=== PATIENT | male | born 1970 | race Caucasian/White ===

== ENCOUNTER → 2018-10-16 | Day surgery (SDC) | payer MEDICAID ==
[2018-10-11 09:53] VITALS: BMI 27.3
[~2018-10-16] MED LIST: LACTATED RINGERS 1,000 ML IV ONE; LACTATED RINGERS 1,000 ML IV SCH; LIDOCAINE 1% 20 ML VIAL (10MG/ML) FOR IV START INTRADERMA PRN; LIDOCAINE 1% INJ 10MG/ML (20 ML MDV) ONE; PROPOFOL 10 MG/ML 20 ML VIAL IV ONE; fentaNYL (PF) 50 MCG/ML 2 ML AMP ONE
[2018-10-16 07:21] VITALS: TEMP 97.3
--- NOTE | 2018-10-16 07:51 | P.GSHP ---
History of Present Illness H&P Date: 10/16/18 Chief Complaint: GERD, hemorrhoids This a 48-year-old male referred from Dr. Nicci foster. Patient presents today for EGD and colonoscopy. He's had issues with GERD. He also complains of hemorrhoids. He complains of burning and itching and some rectal bleeding from hemorrhoids Past Medical History Past Medical History: Eye Disorder, GERD/Reflux, Hyperlipidemia, Sleep Apnea/CPAP/BIPAP Additional Past Medical History / Comment(s): "Has thick blood." Hypoglycemic. Left eye optic neuritis. Hemorrhoids. Hernia. No CPAP use. History of Any Multi-Drug Resistant Organisms: None Reported Past Surgical History: No Surgical Hx Reported Past Anesthesia/Blood Transfusion Reactions: No Reported Reaction Past Psychological History: Anxiety Smoking Status: Current every day smoker Past Alcohol Use History: Daily Additional Past Alcohol Use History / Comment(s): Has been smoking on and off since 12-13 yrs old, 1/2 PPD. Past Drug Use History: None Reported - Past Family History Father Family Medical History: Unable to Obtain Mother Family Medical History: Cancer Additional Family Medical History / Comment(s): Thyroid cancer. Medications and Allergies Home Medications Medication Instructions Recorded Confirmed Type Cholesterol Medication 1 tab PO DAILY 10/11/18 10/11/18 History Ibuprofen [Motrin] 800 mg PO BID 10/11/18 10/11/18 History Ranitidine HCl 300 mg PO BID PRN 10/11/18 10/11/18 History Allergies Allergy/AdvReac Type Severity Reaction Status Date / Time No Known Allergies Allergy Verified 10/11/18 09:56 Surgical - Exam Vital Signs Pulse Resp BP Pulse Ox 65 18 154/91 94 L 10/16/18 07:18 10/16/18 07:18 10/16/18 07:18 10/16/18 07:18 - General well developed, well nourished, no distress - Eyes PERRL - ENT normal pinna - Neck no masses - Respiratory normal expansion - Cardiovascular Rhythm: regular - Abdomen Abdomen: soft, non tender Assessment and Plan Assessment: GERD, hemorrhoids. We'll perform EGD and colonoscopy.
--- NOTE | 2018-10-16 08:12 | P.OP ---
Date of Procedure: 10/16/18 Preoperative Diagnosis: GERD Hemorrhoids Postoperative Diagnosis: Antral gastritis Moderate size hiatal hernia Mild esophagitis External hemorrhoids Transverse colon polyp Mild diverticulosis Procedure(s) Performed: EGD Colonoscopy Anesthesia: MAC Surgeon: Larry Grider Pathology: other (Antrum, esophagus, transverse colon polyp) Condition: stable Disposition: PACU Description of Procedure: The patient's placed on the endoscopy table in the lateral position. He received IV sedation. The gastroscope some placed oropharynx passed in the esophagus and into the stomach. Scope was then placed through the pylorus. The first and second portion of the duodenum appeared normal. Scope was then brought back the antrum and this appeared mildly inflamed. A biopsies performed. The scope was then retroflexed and the remainder of the stomach appeared normal. There was a moderate size hiatal hernia. The GE junction was at 38 cm. The distal esophagus inflamed and a biopsy was performed. The proximal esophagus appeared normal. Scope was withdrawn for patient. Next digital rectal exam was performed which revealed external thrombosed hemorrhoids. There was some minimal internal hemorrhoids. The prostate was symmetric without nodules. The flexible colonoscope was then placed patient anus and passed throughout the entire colon. The ileocecal valve was visualized. The cecum, ascending colon appeared normal. In the proximal transverse colon near the hepatic flexure there was a polyp seen this removed with the cold Forcep. Scope was then withdrawn the remainder of the transverse colon appeared normal. In the descending and; was mild diverticular changes. The scope was then brought back the rectum and this appeared normal. Scope was withdrawn through the anus and external thrombosed hemorrhoids were noted. Scope was withdrawn for patient.
[2018-10-16 08:26] VITALS: RESP 16
[2018-10-16 08:41] VITALS: BP 164/94; PULSE 65
== END ==
LOC: ORWHC2ENDO 07:05
PROVIDERS: ATTEND Surgery
DX: K21.0 Gastro-esophageal reflux disease with esophagitis (principal); K64.5 Perianal venous thrombosis; K44.9 Diaphragmatic hernia without obstruction or gangrene; K57.30 Diverticulosis of large intestine without perforation or abscess without bleeding; K29.50 Unspecified chronic gastritis without bleeding; K63.5 Polyp of colon; E78.5 Hyperlipidemia, unspecified; G47.33 Obstructive sleep apnea (adult) (pediatric); F17.210 Nicotine dependence, cigarettes, uncomplicated; M19.90 Unspecified osteoarthritis, unspecified site; H46.9 Unspecified optic neuritis; Z80.8 Family history of malignant neoplasm of other organs or systems; Z79.1 Long term (current) use of non-steroidal anti-inflammatories (NSAID); Z79.899 Other long term (current) drug therapy
CPT/HCPCS: 88305; 45380; 43239; J2001; J3010; J2704

== ENCOUNTER → 2020-12-04 | Outpatient (CLI) | payer MEDICAID ==
--- NOTE | 2020-12-05 07:48 | US ---
EXAMINATION TYPE: US scrotum with doppler. Grayscale and color Doppler Duplex imaging performed of helen hernandez scrotum. DATE OF EXAM: 12/04/2020 COMPARISON: NONE CLINICAL HISTORY: N50.819 Testicular pain. Bilateral testicular pain. Vasectomy about 2.5 years ago. EXAM MEASUREMENTS: TESTICLES: Right Testicle: 4.9 x 2.8 x 2.4 cm Left Testicle: 4.4 x 3.1 x 2.5 cm Tiny hyperechoic areas seen throughout bilateral testicles. EPIDIDYMIS HEAD: Right Epididymis: 0.7 x 1.3 x 1.4 cm Left Epididymis: 1.2 x 1.6 x 1.1 cm Slightly limited visibility of left epididymis. Doppler performed to assess for testicular vascularity; bilateral color flow and waveforms are seen. Presence of hydroceles: Yes, right: 2.1 x 0.4 x 0.9 cm. left: 3.1 x 1.2 x 1.4 cm. Presence of varicoceles: Vessels measure up to 1.6 mm on the right and 2.1 mm on the left. IMPRESSION: 1. Bilateral hydroceles. 2. Bilateral varicoceles. 3 focal calcifications throughout the testicles.
== END | disposition home or self-care (01) ==
LOC: RADUSWWP 17:01
PROVIDERS: ATTEND Family Medicine
DX: N43.3 Hydrocele, unspecified (principal); I86.1 Scrotal varices; N50.89 Other specified disorders of the male genital organs
CPT/HCPCS: 76870; 93975

== ENCOUNTER 2023-10-22 11:51 | Emergency (ER) | payer MEDICAID ==
[2023-10-22 12:03] VITALS: RESP 18
[2023-10-22] MEDS: KETOROLAC 15 MG/ML 1 ML VIAL IM STA (12:20)
--- NOTE | 2023-10-22 12:20 | ED ---
General Adult HPI - General Chief complaint: Urogenital Stated complaint: UTI with Testical pain Time Seen by Provider: 10/22/23 11:59 Source: patient, family, RN notes reviewed Mode of arrival: ambulatory Limitations: no limitations - History of Present Illness Initial comments: Patient is a 53-year-old male present to the emergency department with testicle pain and dysuria. Symptoms have been occurring for over 6 months, possibly years. Patient has had problems since he had vasectomy. Patient did have recent viral gastroenteritis symptoms however that has mostly resolved. Patient was tested negative for flu. - Related Data Home Medications Medication Instructions Recorded Confirmed Cholesterol Medication 1 tab PO DAILY 10/11/18 10/11/18 Ibuprofen [Motrin] 800 mg PO BID 10/11/18 10/11/18 raNITIdine HCL [Ranitidine HCl] 300 mg PO BID PRN 10/11/18 10/11/18 Previous Rx's Medication Instructions Recorded Ketorolac [Toradol] 10 mg PO Q6HR PRN #15 tab 10/22/23 Phenazopyridine [Pyridium] 100 mg PO TID #5 tablet 10/22/23 Tamsulosin [Flomax] 0.4 mg PO DAILY #14 cap 10/22/23 Allergies Allergy/AdvReac Type Severity Reaction Status Date / Time No Known Allergies Allergy Verified 10/22/23 11:57 Review of Systems ROS Statement: Those systems with pertinent positive or pertinent negative responses have been documented in the HPI. ROS Other: All systems not noted in ROS Statement are negative. Constitutional: Denies: fever Eyes: Denies: eye pain ENT: Denies: ear pain Respiratory: Denies: cough, dyspnea Gastrointestinal: Reports: as per HPI Genitourinary: Reports: as per HPI, urgency, dysuria Past Medical History Past Medical History: Eye Disorder, GERD/Reflux, Hyperlipidemia, Sleep Apnea/CPAP/BIPAP Additional Past Medical History / Comment(s): "Has thick blood." Hypoglycemic. Left eye optic neuritis. Hemorrhoids. Hernia. No CPAP use. History of Any Multi-Drug Resistant Organisms: None Reported Past Surgical History: No Surgical Hx Reported Past Anesthesia/Blood Transfusion Reactions: No Reported Reaction Past Psychological History: Anxiety Smoking Status: Current some day smoker Past Alcohol Use History: Daily Past Drug Use History: None Reported - Past Family History Father Family Medical History: Unable to Obtain Mother Family Medical History: Cancer Additional Family Medical History / Comment(s): Thyroid cancer. General Exam Limitations: no limitations General appearance: alert, in no apparent distress Head exam: Present: normocephalic Eye exam: Present: normal appearance Neck exam: Present: normal inspection Respiratory exam: Present: normal lung sounds bilaterally Cardiovascular Exam: Present: regular rate, normal rhythm GI/Abdominal exam: Present: soft. Absent: distended, tenderness, guarding, rebound, rigid, pulsatile mass exam: Present: normal inspection, other (Easily reducible nontender left inguinal hernia, small). Absent: testicular tenderness, scrotal swelling Extremities exam: Present: normal inspection Back exam: Present: normal inspection. Absent: tenderness, CVA tenderness (L) Neurological exam: Present: alert Psychiatric exam: Present: normal affect, normal mood Skin exam: Present: normal color Course Vital Signs 10/22/23 11:54 Temperature 98.1 F Pulse Rate 72 Respiratory 18 Rate Blood Pressure 149/91 O2 Sat by Pulse 98 Oximetry Medical Decision Making - Medical Decision Making Was pt. sent in by a medical professional or institution (, PA, [employer], urgent care, hospital, or [facility]...) When possible be specific @ -Patient was advised to be seen in the emergency department from urgent care Did you speak to anyone other than the patient for history (EMS, parent, family, police, friend...)? What history was obtained from this source @ - is present and helps provide history including onset of symptoms Did you review nursing and triage notes (agree or disagree)? Why? @ -I reviewed and agree with nursing and triage notes Were old charts reviewed (outside hosp., previous admission, EMS record, old EKG, old radiological studies, urgent care reports/EKG's, [facility] records)? Report findings @ -No old charts were reviewed Differential Diagnosis (chest pain, altered mental status, abdominal pain women, abdominal pain men, vaginal bleeding, weakness, fever, dyspnea, syncope, headache, dizziness, GI bleed, back pain, seizure, CVA, palpatations, mental health, musculoskeletal)? @ -Differential Abdominal Pain Men: Appendicitis, cholecystitis, diverticulosis, ischemic bowel, pancreatitis, hepatitis, UTI, gastroenteritis, AAA, incarcerated hernia, bowel obstruction, constipation, inflammatory bowel, hepatitis, peptic ulcer disease, splenic infarction, perforated viscus, testicular torsion, this is not meant to be an all-inclusive list EKG interpreted by me (3pts min.). @ -As above X-rays interpreted by me (1pt min.). @ -Abdominal x-ray shows no acute process CT interpreted by me (1pt min.). @ -CT scan shows 7 mm left UVJ stone U/S interpreted by me (1pt. min.). @ -Ultrasound with varicocele What testing was considered but not performed or refused? (CT, X-rays, U/S, labs)? Why? @ -None What meds were considered but not given or refused? Why? @ -None Did you discuss the management of the patient with other professionals (professionals i.e. , PA, [employer], lab, RT, psych nurse, high school social studies tutor, flakeboard line tender, teacher, business services officer, case mgr)? Give summary @ -No Was smoking cessation discussed for >3mins.? @ -No Was critical care preformed (if so, how long)? @ -No Were there social determinants of health that impacted care today? How? (Homelessness, low income, unemployed, alcoholism, drug addiction, transportation, low edu. Level, literacy, decrease access to med. care, chcf, rehab)? @ -No Was there de-escalation of care discussed even if they declined (Discuss DNR or withdrawal of care, Hospice)? DNR status @ -No What co-morbidities impacted this encounter? (DM, HTN, Smoking, COPD, CAD, Cancer, CVA, ARF, Chemo, Hep., AIDS, mental health diagnosis, sleep apnea, morbid obesity)? @ -None Was patient admitted / discharged? Hospital course, mention meds given and route, prescriptions, significant lab abnormalities, going to OR and other pertinent info. @ -Patient reevaluated and feeling much better. Family request patient have Pyridium. Patient updated and results and need for follow-up specifically with urology. Patient also updated on concern for sclerosing mesenteritis Undiagnosed new problem with uncertain prognosis? @ -No Drug Therapy requiring intensive monitoring for toxicity (Heparin, Nitro, Insulin, Cardizem)? @ -No Were any procedures done? @ -No Diagnosis/symptom? @ -Ureterolithiasis Acute, or Chronic, or Acute on Chronic? @ -Acute Uncomplicated (without systemic symptoms) or Complicated (systemic symptoms)? @ -Default Side effects of treatment? @ -No Exacerbation, Progression, or Severe Exacerbation? @ -No Poses a threat to life or bodily function? How? (Chest pain, [place], [place], pneumonia, PE, COPD, DKA, ARF, appy, cholecystitis, CVA, Diverticulitis, Homicidal, Suicidal, threat to staff... and all critical care pts) @ -No - Lab Data Lab Results 10/22/23 Range/Units 12:31 Urine Color Yellow Urine Appearance Turbid (Clear) Urine pH 6.0 (5.0-8.0) Ur Specific [place] 1.028 (1.001-1.035) Urine Protein Trace H (Negative) Urine Glucose (UA) Negative (Negative) Urine Ketones Negative (Negative) Urine Blood Moderate H (Negative) Urine Nitrite Negative (Negative) Urine Bilirubin Negative (Negative) Urine Urobilinogen <2.0 (<2.0) mg/dL Ur Leukocyte Esterase Small H (Negative) Urine RBC 59 H (0-5) /hpf Urine WBC 8 H (0-5) /hpf Ur Squamous Epith Cells <1 (0-4) /hpf Urine Bacteria Rare H (None) /hpf Urine Mucus Many H (None) /hpf Disposition Clinical Impression: Ureterolithiasis Disposition: HOME SELF-CARE Condition: Stable Instructions (If sedation given, give patient instructions): Kidney Stones (ED) Additional Instructions: Prescriptions have been sent to pharmacy. Please do follow-up with primary care physician in the next day or 2 for recheck. Please also follow-up with urology in the next couple of days for recheck. Return for fever, uncontrolled vomiting or pain, worsening symptoms or other concerns Prescriptions: Tamsulosin [Flomax] 0.4 mg PO DAILY #14 cap Phenazopyridine [Pyridium] 100 mg PO TID #5 tablet Ketorolac [Toradol] 10 mg PO Q6HR PRN #15 tab PRN Reason: Pain Is patient prescribed a controlled substance at d/c from ED?: No Referrals: Andry Dowell MD [Primary Care Provider] - 1-2 days Jakub Vicente MD [STAFF PHYSICIAN] - 1-2 days Time of Disposition: 14:44
--- NOTE | 2023-10-22 12:35 | XR ---
EXAMINATION TYPE: XR KUB DATE OF EXAM: 10/22/2023 12:31 PM CLINICAL INDICATION:Male, 53 years old with history of pain; COMPARISON: None. TECHNIQUE: One radiographic view of the abdomen was obtained. FINDINGS: The bowel gas pattern is nonspecific without dilated loops of small or large bowel. There i s no evidence for organomegaly or pneumoperitoneum. The osseous structures are intact. No abnormal calcifications are present. Fecal material and gas are demonstrated throughout the colon and rectum. IMPRESSION: Nonspecific bowel gas pattern without radiographic evidence for acute process.
[2023-10-22 13:12] LABS: Appearance,Urine Turbid (Clear); Bacteria,Urine Rare /hpf; Bilirubin,Urine Negative (Negative); Blood,Urine Moderate (Negative); Color,Urine Yellow; Glucose,Urine (UA) Negative (Negative); Ketones,Urine Negative (Negative); Leukocyte Esterase,Urine Small (Negative); Mucus,Urine Many /hpf; Nitrite,Urine Negative (Negative); Protein,Urine Trace (Negative); RBC,Urine 59 /hpf (0-5); Specific Gravity,Urine 1.028 (1.001-1.035); Squamous Epithelial Cell,Urine <1 /hpf (0-4); Urobilinogen,Urine <2.0 mg/dL (<2.0); WBC,Urine 8 /hpf (0-5)
--- NOTE | 2023-10-22 13:12 | US ---
EXAMINATION TYPE: US scrotum with doppler. Grayscale and color Doppler Duplex imaging performed of helen hernandez scrotum. DATE OF EXAM: 10/22/2023 COMPARISON: 12/04/2020 CLINICAL INDICATION: Male, 53 years old with history of pain; Vasectomy > 5 years ago. Pain. Hx hyd rocele. Left back pain. Difficult in urination. EXAM MEASUREMENTS: TESTICLES: Right Testicle: 4.0 x 4.1 x 2.6 cm Left Testicle: 3.9 x 3.6 x 2.4 cm Bilateral diffuse small nonshadowing echogenic foci EPIDIDYMIS HEAD: Right Epididymis: 1.0 x 0.9 x 1.4 cm Left Epididymis: 1.0 x 1.1 x 0.9 cm Tubular ectasia of the epididymis bilaterally. Doppler performed to assess for testicular vascularity; good bilateral color flow and waveforms are s een. There is no evidence of testicular torsion. Presence of hydroceles: Small bilaterally Presence of varicoceles: Left IMPRESSION: 1. Appropriate arterial and venous spectral waveforms to the testes. 2. No evidence for intratesticular mass. 3. Testicular microlithiasis bilaterally. 4. Tubular ectasia of the left epididymis which can be seen in setting of vasectomy. 5. Left varicocele. 6. Trace bilateral scrotal fluid.
--- NOTE | 2023-10-22 14:14 | CT ---
EXAMINATION TYPE: CT abdomen pelvis wo con CT DLP: 725.9 mGycm, Automated exposure control for dose reduction was used. DATE OF EXAM: 10/22/2023 1:52 PM COMPARISON: None CLINICAL INDICATION:Male, 53 years old with history of L flank pain; left flank pain TECHNIQUE: Axial CT abdomen pelvis wo con;Sagittal and coronal reformats were created on a separate workstation. Contrast used: mL of , (none if empty) Oral contrast used: without Oral Contrast (none if empty) FINDINGS: LOWER CHEST: Unremarkable ABDOMEN LIVER: Unremarkable GALLBLADDER AND BILE DUCTS: Multiple gas-filled gallstones are present. PANCREAS: Unremarkable. SPLEEN: Unremarkable. ADRENAL GLANDS: Unremarkable. KIDNEYS AND URETERS: Mild left hydronephrosis secondary obstructing 7 mm calculus at the ureterovesic ular junction. Left renal probable cyst. No right objective uropathy or calculus. PELVIS BLADDER: Unremarkable REPRODUCTIVE: Unremarkable. ABDOMEN & PELVIS STOMACH AND BOWEL: No evidence of bowel obstruction. Scattered colonic diverticula. PERITONEUM/RETROPERITONEUM: No evidence of pneumoperitoneum or free fluid. VASCULATURE: No evidence of aortic aneurysm. MUSCULOSKELETAL: No acute osseous abnormalities LYMPH NODES: No gross evidence for lymphadenopathy. SOFT TISSUE/ABDOMINAL WALL: Fat-containing inguinal hernias bilaterally left greater than right. IMPRESSION: 1. Mild left hydronephrosis secondary obstructing 7 mm calculus at the ureterovesicular junction. 2. Cholelithiasis. 3. Colonic diverticulosis. 4. Paige mesentery which is nonspecific and could represent sclerosing panniculitis. 5. Bilateral fat-containing inguinal hernias.
[2023-10-22] MEDS: ACET/COD 300 MG/30 MG STARTER PACK 6 TAB BTL PO STA (14:56)
[2023-10-22 15:16] VITALS: BP 124/71; PULSE 69; TEMP 97.9
== END 2023-10-22 15:00 | disposition home or self-care (01) ==
LOC: EC 11:51
DX: N20.1 Calculus of ureter (principal); K21.9 Gastro-esophageal reflux disease without esophagitis; G47.30 Sleep apnea, unspecified; F41.9 Anxiety disorder, unspecified; F17.200 Nicotine dependence, unspecified, uncomplicated; Z79.899 Other long term (current) drug therapy
CPT/HCPCS: 81001; 87086; 74018; 93975; 76870; 74176; 99284; 96372; J1885

== ENCOUNTER 2023-10-25 10:54 | Day surgery (SDC) | payer MEDICAID ==
[2023-10-24 14:37] VITALS: BMI 27.0
--- NOTE | 2023-10-24 17:00 | P.GSHP ---
History of Present Illness H&P Date: 10/24/23 53 yo male with a 4 day history of sever left flank pain. He was in the er a few days ago where a 7 mm lt uvj stone obstructed the ureter creating sever colic. He has not passed the stone and continues with severe pain. He was seen today in the office and remains in pain. He was given options of treatment and we have decided to proceed with left ureteroscopy with laser lithotripsy and possible stent . He comes for this procedure. - Constitutional Constitutional: Denies chills, Denies fever - EENT Eyes: denies blurred vision, denies pain Ears, nose, mouth and throat: Denies headache, Denies sore throat - Cardiovascular Cardiovascular: Denies chest pain, Denies shortness of breath - Respiratory Respiratory: Denies cough, Denies 7 - Gastrointestinal Gastrointestinal: Denies abdominal pain, Denies diarrhea, Denies nausea, Denies vomiting - Genitourinary (Female) Genitourinary: Denies dysuria, Denies hematuria - Genitourinary (Male) Genitourinary: Denies dysuria, Denies hematuria - Musculoskeletal Musculoskeletal: Denies myalgias - Integumentary Integumentary: Denies pruritus, Denies rash - Neurological Neurological: Denies numbness, Denies weakness - Psychiatric Psychiatric: Denies anxiety, Denies depression - Endocrine Endocrine: Denies fatigue, Denies weight change Past Medical History Past Medical History: Eye Disorder, GERD/Reflux, Hyperlipidemia, Osteoarthritis (OA) Additional Past Medical History / Comment(s): "Has thick blood.", Hypoglycemic. Left eye optic neuritis., Hemorrhoids. Hernia. , possible sleep apnea, kidney stones, arthritis spine and neck. History of Any Multi-Drug Resistant Organisms: None Reported Past Surgical History: No Surgical Hx Reported Additional Past Surgical History / Comment(s): colonoscopy Past Anesthesia/Blood Transfusion Reactions: No Reported Reaction Past Psychological History: Anxiety Smoking Status: Former smoker Past Alcohol Use History: Daily Additional Past Alcohol Use History / Comment(s): quit smoking. quit alcohol - aug 2022 Past Drug Use History: None Reported - Past Family History Father Family Medical History: Unable to Obtain Mother Family Medical History: Cancer Additional Family Medical History / Comment(s): Thyroid cancer. Medications and Allergies Home Medications Medication Instructions Recorded Confirmed Type Ibuprofen [Motrin] 800 mg PO BID PRN 10/11/18 10/24/23 History Ketorolac [Toradol] 10 mg PO Q6HR PRN #15 tab 10/22/23 10/24/23 Rx Propranolol (Unknown Dose) 1 dose PO DIRECTED PRN 10/24/23 History Sildenafil Citrate [Viagra] 50 mg PO DIRECTED PRN 10/24/23 10/24/23 History Allergies Allergy/AdvReac Type Severity Reaction Status Date / Time No Known Allergies Allergy Verified 10/24/23 13:44 Surgical - Exam - General well developed, well nourished, moderate distress - Eyes normal ocular movement, no icteric - ENT no hearing loss, no congestion - Neck no masses, trachea midline - Respiratory normal respiratory effort, clear to auscultation - Abdomen Abdomen: soft, tender, no guarding, no rigid, no rebound - Integumentary no rash, no abnormal pigmentation - Neurologic no disoriented, no combative - Psychiatric oriented to time, oriented to person, oriented to place, speech is normal, memory intact Results - Imaging Abdominal x-ray: report reviewed, image reviewed CT scan - abdomen: report reviewed, image reviewed CT scan - pelvis: report reviewed, image reviewed Assessment and Plan Assessment: Impression: left ureteral calculous with obstruction Plan: Cysto with left ureteroscopy with laser lithotripsy and possible stent
[~2023-10-25 10:54] MED LIST changes: +DEXAMETHASONE SOD PHOSPHATE 4 MG/ML 1 ML VIAL IV ONE; +HYDROmorphone 0.5 MG/0.5 ML SYRINGE IVP PRN; -LACTATED RINGERS 1,000 ML IV ONE; -LACTATED RINGERS 1,000 ML IV SCH; -LIDOCAINE 1% 20 ML VIAL (10MG/ML) FOR IV START INTRADERMA PRN; -LIDOCAINE 1% INJ 10MG/ML (20 ML MDV) ONE; +MIDAZOLAM 2 MG/2 ML VIAL IV PRN; -PROPOFOL 10 MG/ML 20 ML VIAL IV ONE; +SCOPOLAMINE 1 MG/72 HR PATCH TRANSDERM ONE; -fentaNYL (PF) 50 MCG/ML 2 ML AMP ONE
--- NOTE | 2023-10-25 11:24 | XR ---
EXAMINATION TYPE: XR KUB DATE OF EXAM: 10/25/2023 COMPARISON: 10/22/2023 HISTORY: Pain TECHNIQUE: One view abdominal series FINDINGS: The osseous structures are intact. The bowel gas pattern is nonspecific. Hypertrophic and degenerati ve changes spine. No definite calculi overlying the kidneys. The calcification noted by recent CT scan is not seen with certainty in the pelvis. Faint calcifications are seen along the periphery of the pelvic basin bilat erally felt to be vascular.. IMPRESSION: 1. Previously noted distal ureteral calculus not seen with certainty. Correlate for recent passage of stone.
[2023-10-25 11:40] LABS: Glucose,Whole Blood 104 mg/dL (70-110)
[2023-10-25] MEDS: LACTATED RINGERS 1,000 ML IV SCH (11:46)
[2023-10-25] MEDS: ONDANSETRON 4 MG/2 ML VIAL IVP ONE (11:46)
[2023-10-25] MEDS: GENTAMICIN 120 MG in SODIUM CHLORIDE 0.9% 100 ML IVPB PRN (12:01)
[2023-10-25] MEDS ORDERED: fentaNYL (PF) 50 MCG/ML 2 ML AMP ONE (13:45)
[2023-10-25] MEDS ORDERED: LIDOCAINE 1% INJ 10MG/ML (20 ML MDV) ONE (13:45)
[2023-10-25] MEDS ORDERED: PROPOFOL 10 MG/ML 20 ML VIAL IV ONE (13:45)
[2023-10-25] MEDS ORDERED: MIDAZOLAM 2 MG/2 ML VIAL ONE (13:45)
[2023-10-25] MEDS ORDERED: PHENYLEPHRINE 10 MG/ML VIAL ONE (13:45)
[2023-10-25] MEDS: AMPICILLIN 1,000 MG in SODIUM CHLORIDE 0.9% 50 ML IVPB PRN (14:09)
[2023-10-25] MEDS: LACTATED RINGERS 1,000 ML IV ONE (14:20)
--- NOTE | 2023-10-25 14:25 | P.OP ---
Date of Procedure: 10/25/23 Preoperative Diagnosis: Left ureteral calculus Postoperative Diagnosis: Same Procedure(s) Performed: Cystoscopy, left ureteroscopy, removal stone with grasping forceps Anesthesia: KRISHAN Surgeon: Mook Anderson Estimated Blood Loss (ml): 0 Pathology: other Condition: stable (Stone) Disposition: PACU Indications for Procedure: Patient is 53. He has had a four-day history of severe ureteral colic on the left side. He was in the emergency room on Tuesday with a computed tomography scan identifying by 3 mm stone in the left ureterovesical junction. Patient was in severe colic yesterday so a set up for stone manipulation. He comes for this procedure. Description of Procedure: Patient brought to the operating suite. Given general anesthetic. Placed lithotomy position with a sterile prep and drape. Cystoscopy Foroblique lens and 21-[place] sheath identifies a normal urethra. The prostate is not obstructing. Upon entering the bladder wall the left ureteral orifice is identified and edematous. There is stone falling right out of it as I entered into the bladder. It falls into the bladder. I inspect the rest the bladder and there is no remaining stone. I grasped the stone and it crumbles into small pieces and I flushed it out of the bladder and sent it to pathology. I then pass a semirigid ureteroscope into the distal left ureter up to about the iliac vessels to make sure there is no remaining stone and there is none. The bladder is drained. The patient is awakened and returned recovery room good condition. He will be discharged home upon recovery. He'll follow-up in the office in one week.
[2023-10-25 14:52] VITALS: TEMP 97.7
[2023-10-25] MEDS ORDERED: HYDROcodone/APAP 5-325MG 1 EACH TAB ONE (15:15)
[2023-10-25] MEDS: HYDROcodone/APAP 5-325MG 1 EACH TAB PO ONE (15:16)
[2023-10-25 15:27] VITALS: RESP 20
[2023-10-25 16:02] VITALS: BP 154/78; PULSE 60
== END 2023-10-25 15:52 | disposition home or self-care (01) ==
LOC: OR 10:54
PROVIDERS: ATTEND Urology
DX: N20.1 Calculus of ureter (principal); I10 Essential (primary) hypertension; K21.9 Gastro-esophageal reflux disease without esophagitis; M19.90 Unspecified osteoarthritis, unspecified site; Z87.891 Personal history of nicotine dependence; Z80.8 Family history of malignant neoplasm of other organs or systems; Z98.890 Other specified postprocedural states; E78.5 Hyperlipidemia, unspecified; G47.33 Obstructive sleep apnea (adult) (pediatric); Z79.899 Other long term (current) drug therapy
CPT/HCPCS: 82365; 74018; 52352; C1758 ×3; C1769; C1894; J2250; J2405; J2001; J3010; J1580; J0290; J2704; J2371